=== PATIENT | female | born 1975 | race Two or more races ===

== ENCOUNTER 2025-03-29 11:18 | Emergency (ER) | payer OTHER ==
[~2025-03-29] VITALS: Ht 157.5 cm; Wt 72.6 kg
[2025-03-29] MEDS ORDERED: LEVOTHYROXINE25 MCG PO (12:09)
[2025-03-29] MEDS ORDERED: DIETHYLPROPION25 MG PO (12:10)
[2025-03-29] MEDS ORDERED: 0.9 % SODIUM CHLORIDE 1,000 ML IV STA (13:10)
[2025-03-29 13:36] LABS: BASO % 0.6 % (0.1-1.2); EOS # 0.22 (0.04-0.54); EOS % 3.2 % (0.7-7.0); LYMPH # 1.56 (1.18-3.74); LYMPH % 22.9 % (19.3-53.1); MEAN PLATELET VOLUME 10.70 fl (9.4-12.4); MONO # 0.70 (0.24-0.82); MONO % 10.3 % (4.7-12.5); NEUT # 4.26 (1.56-6.13); NEUT % 62.6 % (34.0-71.1); RED CELL DISTRIBUTION WIDTH 13.1 % (11.6-14.4)
[2025-03-29 13:51] LABS: ERYTHROCYTE SEDIMENTATION RATE 8 mm/hr (0-30)
[2025-03-29 14:26] LABS: ALT/SGPT 33 U/L (12-78); AST/SGOT 19 U/L (15-37); BILIRUBIN TOTAL 0.39 mg/dL (0.3-1.2); BUN CREA RATIO 21 (7.0-25.0); CREATININE SERUM 0.58 mg/dL (0.55-1.02); GFR 109.60; GLOBULINA 3.6 G/DL (2.4-3.5); GLUCOSE FASTING 83 mg/dL (65-100); OSMOLALITY SERUM 280 MOSM/KG (275-295)
[2025-03-29 15:26] LABS: URINE APPEARANCE Clear; URINE BILIRRUBIN Negative (NEGATIVE); URINE BLOOD Small; URINE COLOR Yellow; URINE GLUCOSE Negative (NEGATIVE); URINE KETONE 15 (NEGATIVE); URINE LEUKOCYTE Large; URINE NITRATE Negative; URINE PROTEIN Negative (NEGATIVE); URINE UROBILINOGEN 0.2 E.U./dl
[2025-03-29 15:30] LABS: URINE BACTERIA 2971.9 uL (0.0-1933); URINE EPITHELIAL CELLS 69.9 uL (0.0-38.8); URINE RBC 19.5 uL (0.0-20.8); URINE WBC 763.5 uL (0.0-23.2)
[2025-03-29 15:49] LABS: URINE CAST 0.28 uL (0.0-1.40)
[2025-03-29] MEDS ORDERED: CEFTRIAXONE SODIUM 2,000 MG VIAL IV ONE (20:30)
[2025-03-29] MEDS ORDERED: BACTRIM DS TAB1 EACH PO (20:38)
[2025-03-29] MEDS ORDERED: KETOROLAC TROMETHAMINE 30 MG VIAL IV ONE (20:45)
[2025-03-29] MEDS ORDERED: KETOROLAC TROMETHAMINE 30 MG VIAL ONE (21:04)
[2025-03-29] MEDS ORDERED: CEFTRIAXONE SODIUM 2,000 MG VIAL ONE (21:05)
== END 2025-03-29 23:20 | disposition home or self-care (01) ==
LOC: ER 11:18
PROVIDERS: General Practice
DX: N39.0 Urinary tract infection, site not specified (principal); R10.30 Lower abdominal pain, unspecified; R10.9 Unspecified abdominal pain; D64.9 Anemia, unspecified; E16.1 Other hypoglycemia; Z91.018 Allergy to other foods; Z91.0110 Allergy to milk products, unspecified